=== PATIENT | female | born 1990 | race Two or more races ===

== ENCOUNTER 2018-04-18 18:22 | Emergency (ER) | payer MEDICAID ==
[~2018-04-18] VITALS: Ht 160 cm; Wt 71.0 kg
[2018-04-18] MEDS ORDERED: IBUPROFEN 600MG TABLET PO ONE (22:45)
[2018-04-18 23:45] VITALS: BP 124/80
== END 2018-04-19 00:32 | disposition home or self-care (01) ==
LOC: ER 18:22
DX: S93.402A Sprain of unspecified ligament of left ankle, initial encounter (principal); S43.401A Unspecified sprain of right shoulder joint, initial encounter; S63.302A Traumatic rupture of unspecified ligament of left wrist, initial encounter; F12.10 Cannabis abuse, uncomplicated; W19.XXXA Unspecified fall, initial encounter; Y93.89 Activity, other specified; Y92.89 Other specified places as the place of occurrence of the external cause; Y99.8 Other external cause status
CPT/HCPCS: 73030; 73110; 73610; 81025; 99284